=== PATIENT | female | born 1990 | race Caucasian/White ===

== ENCOUNTER 2016-04-23 13:44 | Emergency (ER) | payer MEDICAID ==
[2016-04-23] MEDS ORDERED: 0.9 % SODIUM CHLORIDE 1,000 ML BAG IV ONE ×2 (14:16→14:38)
[2016-04-23] MEDS ORDERED: ONDANSETRON HCL IV 4 MG/2 ML VIAL IV ONE (14:16)
--- NOTE | 2016-04-23 14:16 | Emergency Department Record ---
History of Present Illness - General Chief complaint: Vomiting Stated complaint: VOMITING/DIARRHEA Time Seen by Provider: 04/23/16 14:15 Source: Patient Mode of Arrival: Ambulatory Limitations: No limitations - History of Present Illness Initial comments: The patient is here due to a 3 hour hx of frequent nausea, then vomiting and loose watery stools. She does have mild epigastric AP which came on after the vomiting. She denies any blood in the vomit or stool. She has a hx of DM and has had these episodes in the past with DKA and also with recurrent vomiting. She denies any recent illnesses or injuries. MD complaint: Diarrhea, Nausea, Vomiting Onset/Timin -: Hour(s) Description of Vomiting: Food contents, Watery Location: Epigastric, Periumbilcal Severity: Moderate Severity scale (1-10): 9 Quality: Aching Consistency: Constant Improves with: None Worsens with: None Associated Symptoms: Nausea/vomiting, Weakness - Related Data Home Medications Medication Instructions Recorded Confirmed Last Taken Insulin Aspart [Novolog] 1 unit SQ BID PRN 06/12/14 04/23/16 1 Day Ago Insulin Glargine,Hum.rec.anlog 10 units SQ BID 11/13/15 04/23/16 1 Day Ago [Lantus] Alprazolam [Xanax] 0.25 mg PO Q8H 04/23/16 04/23/16 1 Day Ago Atorvastatin Calcium 20 mg PO DAILY 04/23/16 04/23/16 1 Day Ago Citalopram Hydrobromide 20 mg PO DAILY 04/23/16 04/23/16 1 Day Ago [Citalopram HBr] Insulin Glulisine [Apidra] 1 unit SQ ASDIR 04/23/16 04/23/16 1 Day Ago Lisinopril 2.5 mg PO DAILY 04/23/16 04/23/16 1 Day Ago Omeprazole 20 mg PO DAILY 04/23/16 04/23/16 1 Day Ago Sucralfate [Carafate] 1 gm PO QID PRN 04/23/16 04/23/16 1 Day Ago Previous Rx's Medication Instructions Recorded Ondansetron [Zofran Odt] 4 mg PO Q8H #20 tab.rapdis 11/13/15 Allergies Allergy/AdvReac Type Severity Reaction Status Date / Time cephalexin monohydrate Allergy SWELLING Verified 04/23/16 14:11 [From Keflex] (GENERAL) codeine phosphate Allergy RASH Verified 04/23/16 14:11 [From Tylenol-Codeine] Travel Screening - Travel/Exposure Within Last 30 Days Have you traveled within the last 30 days?: No - Travel/Exposure Within Last Year Have you traveled outside the [place] in the last year?: No - Additonal Travel Details Have you been exposed to anyone with a communicable illness?: No - Travel Symptoms Symptom Screening: None Review of Systems Constitutional: Denies: Chills, Fever Eyes: Denies: Eye discharge ENT: Denies: Congestion Respiratory: Denies: Cough, Dyspnea Past Medical History - SOCIAL HISTORY Smoking Status: Current every day smoker Alcohol Use: None Drug Use: None - RESPIRATORY Hx Respiratory Disorders: Yes Hx Asthma: Yes - CARDIOVASCULAR Hx Cardio Disorders: Yes Comment:: murmur - NEURO Hx Neuro Disorders: Yes Hx Seizures: Yes (>1 year ago) - GI Hx GI Disorders: No Hx Reflux: Yes - Hx Genitourinary Disorders: No - ENDOCRINE Hx Endocrine Disorders: Yes Hx Diabetes: Yes - MUSCULOSKELETAL Hx Musculoskeletal Disorders: Yes Hx Arthritis: Yes - PSYCH Hx Psych Problems: No - HEMATOLOGY/ONCOLOGY Hx Hematology/Oncology Disorders: No Family Medical History Any Significant Family History?: Yes Hx Heart Disease: Grandparents Hx Seizures: Mother Physical Exam - General General Appearance: Alert, Oriented x3, Cooperative, Mild distress (due to the vomiting. She appears pale and weak presently.) - Head Head exam: Atraumatic, Normocephalic, Normal inspection - Eye Eye exam: Normal appearance, PERRL - ENT Throat exam: Normal inspection. negative: Tonsillar erythema, Tonsillar exudate - Neck Neck exam: Normal inspection, Full ROM. negative: Tenderness - Respiratory Respiratory exam: Normal lung sounds bilaterally. negative: Respiratory distress - Cardiovascular Cardiovascular Exam: Regular rate, Normal rhythm, Normal heart sounds - GI/Abdominal GI/Abdominal exam: Soft, Normal bowel sounds, Tenderness (There is very mild epigastric tenderness to palpation.). negative: Guarding, Rebound, Rigid - Extremities Extremities exam: Normal inspection, Full ROM, Normal capillary refill. negative: Tenderness - Neurological Neurological exam: Alert, Normal gait. negative: Abnormal gait, Motor sensory deficit Course - Reevaluation(s) Reevaluation #1: The patient is doing a little better at this time. Her nausea is improving and she is up ambulating to the bathroom with no difficulty. 04/23/16 14:49 Reevaluation #2: The patient is feeling better. She has much less nausea and is taking fluids with no vomiting. Her vitals are WNL and her abdomen is soft and nontender in all 4 quads and her epigastric area. I did explain to her that I am concerned about the extent of her vomiting and diarrhea with her hx of DM and DKA. Because of that I did recommend hospital admission. The patient is refusing that plan. She understands the risks of refusing are that she could go home and have worsening acidosis, DKA, a stroke, could become disabled and could . The patient understands and accepts the risks. She is instructed to see her PCP tomorrow and to return to the ER for any problems, if she worsens or if she changes her mind about being evaluated further. Presently the patient has proper decision making capacity. 04/23/16 16:04 04/23/16 16:09 Medical Decision Making - Lab Data Result diagrams: 04/23/16 14:10 04/23/16 14:10 Disposition Disposition: Discharge Clinical Impression: Vomiting and diarrhea Disposition: Against Medical Advice Condition: (2) Stable Instructions: Acute Nausea and Vomiting (ED) Additional Instructions: Please use your home Zofran for nausea and drink plenty of fluids. Please see your PCP tomorrow for recheck and return to the ER for any problems or worsening symptoms. Forms: Patient Portal Access Time of Disposition: 16:07
[2016-04-23] MEDS ORDERED: PROMETHAZINE HCL 25 MG/ML VIAL IVP ONE (14:28)
[2016-04-23 14:31] LABS: HEMATOCRIT 41.7 % (35.0-47.0); HEMOGLOBIN 14.4 gm/dl (11.6-16.0); MEAN CORPUSCULAR HEMOGLOBIN 30.4 pg (27-33); MEAN CORPUSCULAR HGB CONC 34.5 g/dl (32-36); MEAN PLATELET VOLUME 10.5 fl (7.4-10.4); PLATELET COUNT 297 K/uL (130-400); RED BLOOD COUNT 4.74 M/uL (3.80-5.40); RED CELL DISTRIBUTION WIDTH 12.3 % (11.5-14.5)
[2016-04-23 14:36] LABS: WHITE BLOOD COUNT W/O DIFF 20.6 K/uL (4.2-12.2)
[2016-04-23 14:43] LABS: PLATELET ESTIMATE NORMAL (NORMAL)
[2016-04-23 14:47] LABS: ACETONE,SERUM NEGATIVE (NEGATIVE)
[2016-04-23 14:50] LABS: ALBUMIN 4.3 gm/dL (3.5-5.0); ALKALINE PHOSPHATASE 106 U/L (38-126); ALT/SGPT 38 U/L (9-52); ANION GAP 12.5 (7-16); AST/SGOT 35 U/L (14-36); BILIRUBIN,TOTAL 0.72 mg/dL (0.2-1.3); BLOOD UREA NITROGEN 10 mg/dL (7-17); CARBON DIOXIDE 24.5 mmol/L (22-30); CREATININE 0.5 mg/dL (0.52-1.04); EST GLOMERULAR FILTRATION RATE > 60 ml/min; GLUCOSE,RANDOM 289 mg/dL (70-110); LIPASE 47 U/L (23-300); TOTAL PROTEIN 7.2 gm/dL (6.3-8.2)
[2016-04-23 14:57] LABS: URINE APPEARANCE CLEAR; URINE BILIRUBIN NEGATIVE (NEGATIVE); URINE BLOOD NEGATIVE (NEGATIVE); URINE COLOR YELLOW; URINE KETONE 40 mg/dL (NEGATIVE); URINE LEUKOCYTE ESTERASE NEGATIVE (NEGATIVE); URINE NITRITE NEGATIVE (NEGATIVE); URINE PROTEIN NEGATIVE (NEGATIVE); URINE UROBILINOGEN 0.2 E.U./dL (0.20 - 1.00)
[2016-04-23 15:00] LABS: URINE GLUCOSE (UA) >=1000 mg/dL (NEGATIVE)
[2016-04-23 15:01] LABS: HCG,QUALITATIVE URINE NEGATIVE (NEGATIVE)
[2016-04-23] MEDS ORDERED: ONDANSETRON HCL IV 4 MG/2 ML VIAL IVP ONE (15:08)
== END 2016-04-23 16:43 | disposition left against medical advice (07) ==
LOC: ER 13:44
DX: R11.2 Nausea with vomiting, unspecified (principal); R19.7 Diarrhea, unspecified; R53.1 Weakness; E11.9 Type 2 diabetes mellitus without complications; Z79.4 Long term (current) use of insulin
CPT/HCPCS: 99284 ×2; 96376; 96374; 96375; 96361; 83690; 80076; 80048; 36416; 82009; 82948; 81003; 81025; 85027; J2405; J2550; J7030

== ENCOUNTER 2016-07-11 02:08 | Emergency (ER) | payer MEDICAID ==
--- NOTE | 2016-07-11 02:21 | Emergency Department Record ---
History of Present Illness - General Stated complaint: DIABETIC AND THROWING UP Time Seen by Provider: 07/11/16 02:11 Source: Patient Mode of Arrival: Ambulatory Limitations: No limitations - History of Present Illness Initial comments: 25 yo female presents with nausea, vomiting and diarrhea that started around noon yesterday. No fever. She has associated abdominal cramps. She is a diabetic. She states her sugar today was mid 200's. She has her medications and has been compliant with her medications. She reports other people close to her have been sick with nausea, vomiting and diarrhea as well. PCP is Toby. complaint: Diarrhea, Nausea, Vomiting -: Hour(s) (14) Description of Vomiting: Watery Description of Diarrhea: Water Location: Diffuse Radiation: None Severity: Mild Quality: Cramping Consistency: Constant Improves with: None Worsens with: Eating Associated Symptoms: Loss of appetite, Nausea/vomiting - Related Data Home Medications Medication Instructions Recorded Confirmed Last Taken Insulin Glargine,Hum.rec.anlog 10 units SQ 0000 11/13/15 07/11/16 1 Day Ago [Lantus] ~04/23/16 Alprazolam [Xanax] 0.25 mg PO BID 04/23/16 07/11/16 1 Day Ago ~04/23/16 Atorvastatin Calcium 20 mg PO DAILY 04/23/16 07/11/16 1 Day Ago ~04/23/16 Citalopram Hydrobromide 20 mg PO DAILY 04/23/16 07/11/16 1 Day Ago [Citalopram HBr] ~04/23/16 Insulin Glulisine [Apidra] 1 unit SQ ASDIR 04/23/16 07/11/16 1 Day Ago ~04/23/16 Lisinopril 2.5 mg PO DAILY 04/23/16 07/11/16 1 Day Ago ~04/23/16 Omeprazole 20 mg PO DAILY 04/23/16 07/11/16 1 Day Ago ~04/23/16 Sucralfate [Carafate] 1 gm PO QID PRN 04/23/16 07/11/16 1 Day Ago ~04/23/16 Insulin Glargine,Hum.rec.anlog 15 unit SQ 1200 04/24/16 07/11/16 Unknown [Lantus] Previous Rx's Medication Instructions Recorded Ondansetron [Zofran Odt] 4 mg PO Q8H #20 tab.rapdis 11/13/15 Allergies Allergy/AdvReac Type Severity Reaction Status Date / Time cephalexin monohydrate Allergy SWELLING Verified 04/24/16 12:34 [From Keflex] (GENERAL) codeine phosphate Allergy RASH Verified 04/24/16 12:34 [From Tylenol-Codeine] Review of Systems Constitutional: Denies: Chills, Fever, Malaise, Weakness Eyes: Denies: Eye discharge, Eye pain, Photophobia, Vision change ENT: Denies: Congestion, Throat pain Respiratory: Denies: Cough, Dyspnea, Hemoptysis, Stridor, Wheezes Cardiovascular: Denies: Chest pain, Palpitations, Syncope Endocrine: Denies: Fatigue Gastrointestinal: Reports: Abdominal pain, Diarrhea, Nausea, Vomiting. Denies: Constipation, Hematemesis, Hematochezia Genitourinary: Denies: Dysuria Musculoskeletal: Denies: Arthralgia, Back pain, Joint swelling, Myalgia Skin: Denies: Bruising, Change in color, Rash Neurological: Denies: Confusion, Headache Psychiatric: Denies: Anxiety Hematological/Lymphatic: Denies: Blood Clots, Easy bleeding, Easy bruising, Swollen glands Past Medical History - SOCIAL HISTORY Smoking Status: Current every day smoker Drug Use: None - RESPIRATORY Hx Respiratory Disorders: Yes Hx Asthma: Yes - CARDIOVASCULAR Hx Cardio Disorders: Yes Comment:: murmur - NEURO Hx Neuro Disorders: Yes Hx Headaches: Yes Hx Seizures: Yes (>1 year ago) - GI Hx GI Disorders: No Hx Reflux: Yes - Hx Genitourinary Disorders: No - ENDOCRINE Hx Endocrine Disorders: Yes Hx Diabetes: Yes - MUSCULOSKELETAL Hx Musculoskeletal Disorders: Yes Hx Arthritis: Yes - PSYCH Hx Psych Problems: Yes Hx Anxiety: Yes Hx Depression: Yes - HEMATOLOGY/ONCOLOGY Hx Hematology/Oncology Disorders: No Family Medical History Hx Heart Disease: Grandparents Hx Seizures: Mother Physical Exam - General General Appearance: Alert, Oriented x3, Cooperative, No acute distress Limitations: No limitations - Head Head exam: Normal inspection - Eye Eye exam: Normal appearance, PERRL. negative: Conjunctival injection, Periorbital swelling - ENT ENT exam: Normal exam, Mucous membranes moist Ear exam: Normal external inspection Nasal Exam: Normal inspection Mouth exam: Normal external inspection Teeth exam: Normal inspection Throat exam: Normal inspection - Neck Neck exam: Normal inspection, Full ROM. negative: Tenderness - Respiratory Respiratory exam: Normal lung sounds bilaterally. negative: Respiratory distress - Cardiovascular Cardiovascular Exam: Normal rhythm, Normal heart sounds, Tachycardia Peripheral Pulses: 2+: Radial (R), Radial (L) - GI/Abdominal GI/Abdominal exam: Soft, Tenderness (diffusely tender but soft). negative: Distended, Guarding - Rectal Rectal exam: Deferred - exam: Deferred - Extremities Extremities exam: Normal inspection, Full ROM, Normal capillary refill. negative: Tenderness - Back Back exam: Reports: Normal inspection, Full ROM. Denies: CVA tenderness (R), CVA tenderness (L), Muscle spasm, Rash noted, Tenderness - Neurological Neurological exam: Alert, Normal gait, Oriented X3 - Psychiatric Psychiatric exam: Normal affect, Normal mood. negative: Agitated, Anxious - Skin Skin exam: Dry, Intact, Normal color, Warm Course - Reevaluation(s) Reevaluation #1: EMR reviewed from prior visit Hx of similar symptoms with DKA 07/11/16 02:22 Reevaluation #2: The labs were reviewed pH is 7.38 Acetone is Positive HCO3 17 AG 19 Glucose is 389 K 4.4 UA with ketones and glucose WBC count on the CBC is 15.9 07/11/16 03:01 The patient was informed of the results I recommend admission to correct the dehydration, and correct the AG as she is on the spectrum of DKA. 07/11/16 03:04 07/11/16 03:05 Reevaluation #3: The patient was informed of the need to admit for monitoring of electrolytes and continued hydration. She states she is ready to go and will sign out AMA. She is very aware of the risks of DKA and worsening symptoms. She is willing to sign out with those risks AMA. 07/11/16 04:46 Medical Decision Making - Lab Data Result diagrams: 07/11/16 02:27 07/11/16 02:27 Disposition Disposition: Discharge Clinical Impression: Vomiting and diarrhea, Dehydration, Left against medical advice Disposition: Against Medical Advice Condition: (2) Stable Instructions: Diabetic Ketoacidosis (ED), Diabetic Hypoglycemia (ED), Against Medical Advice (ED) Additional Instructions: Stay well hydrated return immediately if vomiting, pain, fever or concerns Time of Disposition: 04:45
[2016-07-11 02:29] LABS: BASO % 0.1 % (0-6); EOS % 0.4 % (0-6); HEMATOCRIT 41.5 % (35.0-47.0); HEMOGLOBIN 14.1 gm/dl (11.6-16.0); LYMPH % 4.8 % (16-45); MEAN CELL VOLUME 86.6 fl (81-97); MEAN CORPUSCULAR HEMOGLOBIN 29.4 pg (27-33); MEAN PLATELET VOLUME 10.5 fl (7.4-10.4); MONO % 3.3 % (0-9); PLATELET COUNT 278 K/uL (130-400); RED BLOOD COUNT 4.79 M/uL (3.80-5.40); RED CELL DISTRIBUTION WIDTH 12.3 % (11.5-14.5); WHITE BLOOD COUNT W/O DIFF 15.9 K/uL (4.2-12.2)
[2016-07-11] MEDS: 0.9 % SODIUM CHLORIDE 1,000 ML BAG IV ONE ×2 (02:29→03:10)
[2016-07-11] MEDS: ONDANSETRON HCL IV 4 MG/2 ML VIAL IVP ONE (02:29)
[2016-07-11 02:40] LABS: ALB/GLOB RATIO 1.5 (1.1-1.8); ALBUMIN 5.1 gm/dL (3.5-5.0); ALKALINE PHOSPHATASE 114 U/L (38-126); ALT/SGPT 29 U/L (9-52); ANION GAP 19.6 (7-16); BILIRUBIN,TOTAL 0.98 mg/dL (0.2-1.3); BLOOD UREA NITROGEN 12 mg/dL (7-17); CARBON DIOXIDE 17.4 mmol/L (22-30); CREATININE 0.6 mg/dL (0.52-1.04); EST GLOMERULAR FILTRATION RATE > 60 ml/min; TOTAL PROTEIN 8.4 gm/dL (6.3-8.2)
[2016-07-11] MEDS: MORPHINE SULFATE 5 MG/ML PFS IVP ONE (02:41)
[2016-07-11 02:46] LABS: ACETONE,SERUM POSITIVE (NEGATIVE)
[2016-07-11 02:48] LABS: AST/SGOT 28 U/L (14-36); GLUCOSE,RANDOM 389 mg/dL (70-110)
[2016-07-11 02:48] LABS: URINE APPEARANCE CLEAR; URINE BILIRUBIN NEGATIVE (NEGATIVE); URINE BLOOD TRACE-I (NEGATIVE); URINE COLOR YELLOW; URINE LEUKOCYTE ESTERASE NEGATIVE (NEGATIVE); URINE NITRITE NEGATIVE (NEGATIVE); URINE PROTEIN NEGATIVE (NEGATIVE); URINE UROBILINOGEN 0.2 E.U./dL (0.20 - 1.00)
[2016-07-11 02:51] LABS: URINE GLUCOSE (UA) >=1000 mg/dL (NEGATIVE)
[2016-07-11 02:52] LABS: HCG,QUALITATIVE URINE NEGATIVE (NEGATIVE); URINE BACTERIA NONE SEEN; URINE EPITHELIAL CELLS 0 - 2 (FEW); URINE KETONE 80 mg/dL (NEGATIVE); URINE RBC 0 - 2 (NONE SEEN); URINE WBC 0 - 2 (0-2/hpf)
[2016-07-11] MEDS: HUMULIN R 100 UNIT/ML VIAL SQ ONE (03:25)
[2016-07-11] MEDS: HUMULIN R 100 UNIT/ML VIAL IV ONE (04:02)
== END 2016-07-11 04:57 | disposition left against medical advice (07) ==
LOC: ER 02:08
DX: E10.65 Type 1 diabetes mellitus with hyperglycemia (principal); Z79.4 Long term (current) use of insulin; E86.0 Dehydration; R11.2 Nausea with vomiting, unspecified; R19.7 Diarrhea, unspecified
CPT/HCPCS: 99284 ×2; 96376; 96374; 96375; 82800; 83690; 80053; 36416; 81001; 82009; 82948; 81025; 85027; J2405; J2270; J7030

== ENCOUNTER 2016-08-26 15:22 | Emergency (ER) | payer MEDICAID ==
[2016-08-26] MEDS ORDERED: ONDANSETRON HCL IV 4 MG/2 ML VIAL IV ONE (16:18)
[2016-08-26] MEDS ORDERED: 0.9 % SODIUM CHLORIDE 1,000 ML BAG IV ONE (16:18)
--- NOTE | 2016-08-26 16:28 | Emergency Department Record ---
History of Present Illness - General Chief Complaint: Abdominal Pain Stated Complaint: ABD PAIN, VOMITING Time Seen by Provider: 08/26/16 16:17 Source: Patient, Family Mode of Arrival: Ambulatory Limitations: No limitations - History of Present Illness Initial Comments: 25 yo female presents with recurrent nausea and vomiting. She is a diabetic. She reports her sugar this morning was 220. She has had many episodes of similar nausea and vomiting in the past. Last BM was yesterday and was normal. No diarrhea. No fever, no rash, she does not think she is . MD Complaint: Other (Nausea, vomtiing) Onset/Timin -: Days(s) Location: Diffuse Migration to: Other (diffuse) Severity: Moderate Quality: Aching, Cramping Consistency: Intermittent Improves With: Medication Worsens With: Eating Context: Other Associated Symptoms: Denies other symptoms Treatments Prior to Arrival: Other - Related Data LMP Date: 08/25/16 LMP (females 10-50): Current Home Medications Medication Instructions Recorded Confirmed Last Taken Insulin Glargine,Hum.rec.anlog 10 units SQ 0000 11/13/15 08/26/16 08/26/16 [Lantus] Alprazolam [Xanax] 0.25 mg PO BID 04/23/16 08/26/16 08/26/16 Atorvastatin Calcium 20 mg PO DAILY 04/23/16 08/26/16 08/26/16 Citalopram Hydrobromide 20 mg PO DAILY 04/23/16 08/26/16 08/26/16 [Citalopram HBr] Insulin Glulisine [Apidra] 1 unit SQ ASDIR 04/23/16 08/26/16 08/26/16 Lisinopril 2.5 mg PO DAILY 04/23/16 08/26/16 08/26/16 Omeprazole 20 mg PO DAILY 04/23/16 08/26/16 08/26/16 Sucralfate [Carafate] 1 gm PO QID PRN 04/23/16 08/26/16 08/26/16 Insulin Glargine,Hum.rec.anlog 15 unit SQ 1200 04/24/16 08/26/16 08/26/16 [Lantus] Previous Rx's Medication Instructions Recorded Ondansetron [Zofran Odt] 4 mg PO Q8H #20 tab.rapdis 11/13/15 Allergies Allergy/AdvReac Type Severity Reaction Status Date / Time cephalexin monohydrate Allergy SWELLING Verified 08/26/16 16:03 [From Keflex] (GENERAL) codeine phosphate Allergy RASH Verified 08/26/16 16:03 [From Tylenol-Codeine] Travel Screening - Travel/Exposure Within Last 30 Days Have you traveled within the last 30 days?: No - Travel/Exposure Within Last Year Have you traveled outside the [place] in the last year?: No - Additonal Travel Details Have you been exposed to anyone with a communicable illness?: No - Travel Symptoms Symptom Screening: None Review of Systems Constitutional: Reports: Malaise, Weakness. Denies: Chills, Fever Eyes: Denies: Eye discharge, Eye pain, Photophobia, Vision change ENT: Denies: Congestion, Throat pain Respiratory: Denies: Cough, Dyspnea, Hemoptysis, Stridor, Wheezes Cardiovascular: Denies: Chest pain, Palpitations, Syncope Endocrine: Denies: Fatigue Gastrointestinal: Reports: Abdominal pain, Nausea, Vomiting. Denies: As per HPI , Constipation, Diarrhea, Hematemesis, Hematochezia, Melena Genitourinary: Denies: Dysuria, Urgency Musculoskeletal: Denies: Arthralgia, Back pain, Joint swelling, Myalgia, Neck pain Skin: Denies: Bruising, Change in color, Rash Neurological: Denies: Confusion, Headache, Numbness, Tremors, Vertigo, Weakness Psychiatric: Denies: Anxiety Hematological/Lymphatic: Denies: Blood Clots, Easy bleeding, Easy bruising, Swollen glands Past Medical History - SOCIAL HISTORY Smoking Status: Current every day smoker Alcohol Use: Rare Drug Use: None - RESPIRATORY Hx Respiratory Disorders: Yes Hx Asthma: Yes - CARDIOVASCULAR Hx Cardio Disorders: Yes Comment:: murmur - NEURO Hx Neuro Disorders: Yes Hx Headaches: Yes Hx Seizures: Yes (>1 year ago) - GI Hx GI Disorders: No Hx Reflux: Yes - Hx Genitourinary Disorders: No - ENDOCRINE Hx Endocrine Disorders: Yes Hx Diabetes: Yes - MUSCULOSKELETAL Hx Musculoskeletal Disorders: Yes Hx Arthritis: Yes - PSYCH Hx Psych Problems: Yes Hx Anxiety: Yes Hx Depression: Yes - HEMATOLOGY/ONCOLOGY Hx Hematology/Oncology Disorders: No Family Medical History Any Significant Family History?: Yes Hx Heart Disease: Grandparents Hx Seizures: Mother Physical Exam - General General Appearance: Alert, Oriented x3, Cooperative, No acute distress Limitations: No limitations - Head Head exam: Normal inspection - Eye Eye exam: Normal appearance. negative: Conjunctival injection - ENT ENT exam: Normal exam, Mucous membranes moist. negative: Mucous membranes dry Ear exam: Normal external inspection Nasal Exam: Normal inspection Mouth exam: Normal external inspection Teeth exam: Normal inspection Throat exam: Normal inspection - Neck Neck exam: Normal inspection. negative: Lymphadenopathy - Respiratory Respiratory exam: Normal lung sounds bilaterally. negative: Respiratory distress - Cardiovascular Cardiovascular Exam: Normal rhythm, Normal heart sounds, Tachycardia Peripheral Pulses: 2+: Radial (R), Radial (L) - GI/Abdominal GI/Abdominal exam: Soft, Tenderness (mild diffuse but soft abdomen). negative: Distended, Guarding, Rigid - Rectal Rectal exam: Deferred - exam: Deferred - Extremities Extremities exam: Normal inspection, Full ROM, Normal capillary refill. negative: Tenderness - Back Back exam: Reports: Normal inspection, Full ROM. Denies: Muscle spasm, Rash noted, Tenderness - Neurological Neurological exam: Alert, Normal gait, Oriented X3 - Psychiatric Psychiatric exam: Normal affect, Normal mood - Skin Skin exam: Dry, Intact, Normal color, Warm Course Vital Signs 08/26/16 16:04 Temperature 98.3 F Pulse Rate 130 H Respiratory 18 Rate Blood Pressure 162/97 Pulse Ox 100 - Reevaluation(s) Reevaluation #1: The labs were reviewed pH is 7.35 Acetone POSITIVE Sodium 134, K 4.2, HCO3 17 with a AG of 24, Glucose 472, Cr is 0.9 WBC is 22 on the CBC. The patient was informed. I recommend admission/observation for continued hydration. She is not willing at this time. She requests additional hydration and recheck. She is much improved with controlled nausea. No vomiting. Per EMR she has signed out AMA in the past in similar condition. She has not concluded yet if she will stay or not. 08/26/16 17:26 08/26/16 17:32 Reevaluation #2: The patient continues to state she feels improved HR remains tachycardic. BP 92/ No vomiting. 08/26/16 18:29 Reevaluation #3: The case was signed out at the bedside with Dr Aquino He will re-evaluate. At sign out with the patient admission was again recommended. She is still considering this. 08/26/16 19:04 Medical Decision Making - Lab Data Result diagrams: 08/26/16 16:24 08/26/16 16:24 Disposition Clinical Impression: Dehydration, Vomiting and diarrhea, Hyperglycemia Forms: Patient Portal Access Quality - Blood Pressure Screening Blood Pressure Classification: Hypertensive Reading Systolic Measurement: 162 Diastolic Measurement: 97
[2016-08-26] MEDS ORDERED: ACETAMINOPHEN 1,000 MG/100 ML BTL IVPB ONE (16:31)
[2016-08-26] MEDS ORDERED: LORAZEPAM 2 MG/ML VIAL IV ONE ×2 (16:32→19:04)
[2016-08-26 16:37] LABS: HEMATOCRIT 43.5 % (35.0-47.0); HEMOGLOBIN 15.5 gm/dl (11.6-16.0); MEAN CELL VOLUME 85.8 fl (81-97); MEAN CORPUSCULAR HEMOGLOBIN 30.6 pg (27-33); MEAN CORPUSCULAR HGB CONC 35.6 g/dl (32-36); PLATELET COUNT 307 K/uL (130-400); RED BLOOD COUNT 5.07 M/uL (3.80-5.40); RED CELL DISTRIBUTION WIDTH 12.8 % (11.5-14.5)
[2016-08-26 16:38] LABS: WHITE BLOOD COUNT W/O DIFF 22.2 K/uL (4.2-12.2)
[2016-08-26 16:48] LABS: ALB/GLOB RATIO 1.6 (1.1-1.8); ALBUMIN 5.5 gm/dL (3.5-5.0); ALKALINE PHOSPHATASE 116 U/L (38-126); ALT/SGPT 24 U/L (9-52); ANION GAP 24.8 (7-16); AST/SGOT 17 U/L (14-36); BILIRUBIN,TOTAL 1.48 mg/dL (0.2-1.3); BLOOD UREA NITROGEN 22 mg/dL (7-17); CARBON DIOXIDE 17.2 mmol/L (22-30); CREATININE 0.9 mg/dL (0.52-1.04); EST GLOMERULAR FILTRATION RATE > 60 ml/min; LIPASE 35 U/L (23-300); PLATELET ESTIMATE NORMAL (NORMAL); TOTAL PROTEIN 8.9 gm/dL (6.3-8.2)
[2016-08-26 17:03] LABS: GLUCOSE,RANDOM 472 mg/dL (70-110)
[2016-08-26 17:06] LABS: ACETONE,SERUM POSITIVE (NEGATIVE)
[2016-08-26] MEDS ORDERED: INSULIN REGULAR, HUMAN 100 UNIT in 0.9 % SODIUM CHLORIDE 100ML 100 ML IV SCH ×2 (17:45)
[2016-08-26 17:47] LABS: URINE APPEARANCE CLEAR; URINE BILIRUBIN NEGATIVE (NEGATIVE); URINE BLOOD LARGE (NEGATIVE); URINE COLOR YELLOW; URINE LEUKOCYTE ESTERASE NEGATIVE (NEGATIVE); URINE NITRITE NEGATIVE (NEGATIVE); URINE PROTEIN TRACE (NEGATIVE); URINE UROBILINOGEN 0.2 E.U./dL (0.20 - 1.00)
[2016-08-26 17:50] LABS: URINE GLUCOSE (UA) >=1000 mg/dL (NEGATIVE)
[2016-08-26 17:51] LABS: URINE KETONE 80 mg/dL (NEGATIVE)
[2016-08-26 17:58] LABS: URINE RBC 0 - 2 (NONE SEEN); URINE WBC 0 - 2 (0-2/hpf)
[2016-08-26 17:59] LABS: URINE BACTERIA FEW; URINE EPITHELIAL CELLS 0 - 2 (FEW)
[2016-08-26 19:36] LABS: ANION GAP 13.3 (7-16); BLOOD UREA NITROGEN 19 mg/dL (7-17); CARBON DIOXIDE 19.7 mmol/L (22-30); CREATININE 0.7 mg/dL (0.52-1.04); EST GLOMERULAR FILTRATION RATE > 60 ml/min; GLUCOSE,RANDOM 219 mg/dL (70-110)
--- NOTE | 2016-08-26 20:17 | Emergency Department Record ---
History of Present Illness - General Chief Complaint: Abdominal Pain Stated Complaint: ABD PAIN, VOMITING Time Seen by Provider: 08/26/16 16:17 Source: Patient, Family Mode of Arrival: Ambulatory Limitations: No limitations - History of Present Illness MD Complaint: Other (Nausea, vomtiing) Onset/Timin -: Days(s) Location: Diffuse Migration to: Other (diffuse) Severity: Moderate Quality: Aching, Cramping Consistency: Intermittent Improves With: Medication Worsens With: Eating Context: Other Associated Symptoms: Denies other symptoms Treatments Prior to Arrival: Other - Related Data LMP Date: 08/25/16 LMP (females 10-50): Current Home Medications Medication Instructions Recorded Confirmed Last Taken Insulin Glargine,Hum.rec.anlog 10 units SQ 0000 11/13/15 08/26/16 08/26/16 [Lantus] Alprazolam [Xanax] 0.25 mg PO BID 04/23/16 08/26/16 08/26/16 Atorvastatin Calcium 20 mg PO DAILY 04/23/16 08/26/16 08/26/16 Citalopram Hydrobromide 20 mg PO DAILY 04/23/16 08/26/16 08/26/16 [Citalopram HBr] Insulin Glulisine [Apidra] 1 unit SQ ASDIR 04/23/16 08/26/16 08/26/16 Lisinopril 2.5 mg PO DAILY 04/23/16 08/26/16 08/26/16 Omeprazole 20 mg PO DAILY 04/23/16 08/26/16 08/26/16 Sucralfate [Carafate] 1 gm PO QID PRN 04/23/16 08/26/16 08/26/16 Insulin Glargine,Hum.rec.anlog 15 unit SQ 1200 04/24/16 08/26/16 08/26/16 [Lantus] Previous Rx's Medication Instructions Recorded Ondansetron [Zofran Odt] 4 mg PO Q8H #20 tab.rapdis 11/13/15 Allergies Allergy/AdvReac Type Severity Reaction Status Date / Time cephalexin monohydrate Allergy SWELLING Verified 08/26/16 16:03 [From Keflex] (GENERAL) codeine phosphate Allergy RASH Verified 08/26/16 16:03 [From Tylenol-Codeine] Travel Screening - Travel/Exposure Within Last 30 Days Have you traveled within the last 30 days?: No - Travel/Exposure Within Last Year Have you traveled outside the [place] in the last year?: No - Additonal Travel Details Have you been exposed to anyone with a communicable illness?: No - Travel Symptoms Symptom Screening: None Review of Systems Constitutional: Reports: Malaise, Weakness. Denies: Chills, Fever Eyes: Denies: Eye discharge, Eye pain, Photophobia, Vision change ENT: Denies: Congestion, Throat pain Respiratory: Denies: Cough, Dyspnea, Hemoptysis, Stridor, Wheezes Cardiovascular: Denies: Chest pain, Palpitations, Syncope Endocrine: Denies: Fatigue Gastrointestinal: Reports: Abdominal pain, Nausea, Vomiting. Denies: As per HPI , Constipation, Diarrhea, Hematemesis, Hematochezia, Melena Genitourinary: Denies: Dysuria, Urgency Musculoskeletal: Denies: Arthralgia, Back pain, Joint swelling, Myalgia, Neck pain Skin: Denies: Bruising, Change in color, Rash Neurological: Denies: Confusion, Headache, Numbness, Tremors, Vertigo, Weakness Psychiatric: Denies: Anxiety Hematological/Lymphatic: Denies: Blood Clots, Easy bleeding, Easy bruising, Swollen glands Past Medical History - SOCIAL HISTORY Smoking Status: Current every day smoker Alcohol Use: Rare Drug Use: None - RESPIRATORY Hx Respiratory Disorders: Yes Hx Asthma: Yes - CARDIOVASCULAR Hx Cardio Disorders: Yes Comment:: murmur - NEURO Hx Neuro Disorders: Yes Hx Headaches: Yes Hx Seizures: Yes (>1 year ago) - GI Hx GI Disorders: No Hx Reflux: Yes - Hx Genitourinary Disorders: No - ENDOCRINE Hx Endocrine Disorders: Yes Hx Diabetes: Yes - MUSCULOSKELETAL Hx Musculoskeletal Disorders: Yes Hx Arthritis: Yes - PSYCH Hx Psych Problems: Yes Hx Anxiety: Yes Hx Depression: Yes - HEMATOLOGY/ONCOLOGY Hx Hematology/Oncology Disorders: No Family Medical History Any Significant Family History?: Yes Hx Heart Disease: Grandparents Hx Seizures: Mother Physical Exam - General Limitations: No limitations Course Vital Signs 08/26/16 08/26/16 08/26/16 16:04 16:30 17:52 Temperature 98.3 F Pulse Rate 130 H Pulse Rate [ 125 H 120 H Pulse Ox Probe] Respiratory 18 20 20 Rate Blood Pressure 162/97 Blood Pressure 110/55 92/50 [Left Arm] Pulse Ox 100 98 98 08/26/16 08/26/16 08/26/16 18:15 18:50 19:05 Temperature Pulse Rate Pulse Rate [ 114 H 119 H 118 H Pulse Ox Probe] Respiratory 20 20 20 Rate Blood Pressure Blood Pressure 80/54 91/48 98/59 [Left Arm] Pulse Ox 99 99 08/26/16 20:09 Temperature 98.0 F Pulse Rate Pulse Rate [ 111 H Pulse Ox Probe] Respiratory 20 Rate Blood Pressure Blood Pressure 89/49 [Left Arm] Pulse Ox 99 - Reevaluation(s) Reevaluation #1: 08/26/16 20:12 Repeat laboratory studies reviewed, CO2 improved from 17 to 19, AG down from 25 to 13, Glucose improved from 472-291. Patient's pulse remains elevated at 120's , BP 89/49 while sleeping following 4th Liter NS. I recommended to the patient admission for continued IVF resuscitation and further evaluation, patient declined stating that she is feeling better and wants to go home at this time. Risk of worsening symptoms, permanent disability, and vs. the benefit of further treatment and evaluation were discussed, patient acknowledges all risks and benefits and has the capacity to make rational decision based on my examination. Patient was encouraged to return at any time for further evaluation or if her symptoms worsen. Medical Decision Making - Lab Data Result diagrams: 08/26/16 16:24 08/26/16 19:28 Lab Results 08/26/16 08/26/16 08/26/16 Range/Units 16:24 16:24 17:30 WBC 22.2 H* (4.2-12.2) K/uL RBC 5.07 (3.80-5.40) M/uL Hgb 15.5 (11.6-16.0) gm/dl Hct 43.5 (35.0-47.0) % MCV 85.8 (81-97) fl MCH 30.6 (27-33) pg MCHC 35.6 (32-36) g/dl RDW 12.8 (11.5-14.5) % Plt Count 307 (130-400) K/uL MPV 11.0 H (7.4-10.4) fl Neutrophils % 88.0 H (47-80) % Eosinophils % Not Reportable Basophils % Not Reportable Lymphocytes 5.0 L (16-45) % Monocytes 7.0 (0-9) % Platelet Estimate Normal (NORMAL) RBC Morphology Normal VBG pH 7.35 (7.32-7.41) Sodium 134 L (136-145) mmol/L Potassium 4.2 (3.5-5.1) mmol/L Chloride 92 L (98-107) mmol/L Carbon Dioxide 17.2 L (22-30) mmol/L Anion Gap 24.8 H (7-16) BUN 22 H (7-17) mg/dL Creatinine 0.9 (0.52-1.04) mg/dL Estimated GFR > 60 ml/min Random Glucose 472 H* (70-110) mg/dL Calcium 10.2 H (8.5-10.1) mg/dL Total Bilirubin 1.48 H (0.2-1.3) mg/dL AST 17 (14-36) U/L ALT 24 (9-52) U/L Alkaline Phosphatase 116 (38-126) U/L Total Protein 8.9 H (6.3-8.2) gm/dL Albumin 5.5 H (3.5-5.0) gm/dL Globulin 3.4 (1.4-4.8) gm/dL Albumin/Globulin Ratio 1.6 (1.1-1.8) Lipase 35 (23-300) U/L Urine Color Yellow Urine Appearance Clear Urine pH 5.5 (5.0-8.0) Ur Specific Dinosaur 1.025 (1.002-1.030) Urine Protein Trace H (NEGATIVE) Urine Glucose (UA) >=1000 mg/dl H (NEGATIVE) Urine Ketones 80 mg/dl H (NEGATIVE) Urine Blood Large H (NEGATIVE) Urine Nitrite Negative (NEGATIVE) Urine Bilirubin Negative (NEGATIVE) Urine Urobilinogen 0.2 (0.20 - 1.00) E.U./dL Ur Leukocyte Esterase Negative (NEGATIVE) Urine RBC 0 - 2 (NONE SEEN) Urine WBC 0 - 2 (0-2/hpf) Ur Epithelial Cells 0 - 2 (FEW) Urine Bacteria Few Urine HCG, Qual (NEGATIVE) Acetone, Qual Positive (NEGATIVE) 08/26/16 08/26/16 08/26/16 Range/Units 17:30 19:28 19:45 WBC (4.2-12.2) K/uL RBC (3.80-5.40) M/uL Hgb (11.6-16.0) gm/dl Hct (35.0-47.0) % MCV (81-97) fl MCH (27-33) pg MCHC (32-36) g/dl RDW (11.5-14.5) % Plt Count (130-400) K/uL MPV (7.4-10.4) fl Neutrophils % (47-80) % Eosinophils % Basophils % Lymphocytes (16-45) % Monocytes (0-9) % Platelet Estimate (NORMAL) RBC Morphology VBG pH (7.32-7.41) Sodium 138 Cancelled (136-145) mmol/L Potassium 3.5 Cancelled (3.5-5.1) mmol/L Chloride 105 Cancelled (98-107) mmol/L Carbon Dioxide 19.7 L Cancelled (22-30) mmol/L Anion Gap 13.3 Cancelled (7-16) BUN 19 H Cancelled (7-17) mg/dL Creatinine 0.7 Cancelled (0.52-1.04) mg/dL Estimated GFR > 60 Cancelled ml/min Random Glucose 219 H Cancelled (70-110) mg/dL Calcium 7.9 L Cancelled (8.5-10.1) mg/dL Total Bilirubin Cancelled (0.2-1.3) mg/dL AST Cancelled (14-36) U/L ALT Cancelled (9-52) U/L Alkaline Phosphatase Cancelled (38-126) U/L Total Protein Cancelled (6.3-8.2) gm/dL Albumin Cancelled (3.5-5.0) gm/dL Globulin Cancelled (1.4-4.8) gm/dL Albumin/Globulin Ratio Cancelled (1.1-1.8) Lipase (23-300) U/L Urine Color Urine Appearance Urine pH (5.0-8.0) Ur Specific Dinosaur (1.002-1.030) Urine Protein (NEGATIVE) Urine Glucose (UA) (NEGATIVE) Urine Ketones (NEGATIVE) Urine Blood (NEGATIVE) Urine Nitrite (NEGATIVE) Urine Bilirubin (NEGATIVE) Urine Urobilinogen (0.20 - 1.00) E.U./dL Ur Leukocyte Esterase (NEGATIVE) Urine RBC (NONE SEEN) Urine WBC (0-2/hpf) Ur Epithelial Cells (FEW) Urine Bacteria Urine HCG, Qual Negative (NEGATIVE) Acetone, Qual (NEGATIVE) Disposition Disposition: Other (AMA) Clinical Impression: Dehydration, Vomiting and diarrhea, Hyperglycemia Disposition: Against Medical Advice Condition: (3) Guarded Instructions: Diabetic Hyperglycemia (ED) Additional Instructions: Return to ED if your symptoms worsen or if you have any concerns. Drink plenty of fluids/rest. Follow-up with your family doctor in 1-3 days without fail. Forms: Patient Portal Access Time of Disposition: 20:17 Quality - Quality Measures Quality Measures: N/A - Blood Pressure Screening Blood Pressure Classification: Hypertensive Reading Systolic Measurement: 162 Diastolic Measurement: 97 Screening for High Blood Pressure: < First Hypertensive BP, F/U Documented > [ [id number]] First Hypertensive Follow-up Interventions: Referral to alternative/primary care provider.
== END 2016-08-26 20:25 | disposition left against medical advice (07) ==
LOC: ER 15:22
DX: E86.0 Dehydration (principal); R11.2 Nausea with vomiting, unspecified; E11.65 Type 2 diabetes mellitus with hyperglycemia; Z79.84 Long term (current) use of oral hypoglycemic drugs; I10 Essential (primary) hypertension; F17.210 Nicotine dependence, cigarettes, uncomplicated
CPT/HCPCS: 99284 ×2; 96376; 96374; 96375; 96361; 82800; 83690; 80048; 80053; 81001; 82009; 81025; 85027; J2405; J1815; J2060; J7030